=== PATIENT | female | born 2000 | race Caucasian/White ===

== ENCOUNTER → 2019-05-31 10:33 | Outpatient (BNVA) | payer OTHER, SELFPAY | PROVIDERS: Family Provider Nurse Practitioner Family; Visit Provider Family Medicine | DX: J02.9 Acute pharyngitis, unspecified (principal); J34.89 Other specified disorders of nose and nasal sinuses | CPT/HCPCS: 87081; 87880 ==

== ENCOUNTER → 2023-02-04 13:03 | Day surgery (SDC) | payer OTHER, BC, MEDICAID, SELFPAY ==
[2023-02-04 13:41] VITALS: BP 128/73; PULSE 84; RESP 18; TEMP 36.4; O2SAT 97
[2023-02-04 14:27] VITALS: BP 128/73; PULSE 84; RESP 18; TEMP 36.4; O2SAT 97
== END ==
PROVIDERS: PCP Family Medicine; Visit Provider Family Medicine
DX: O26.899 Other specified pregnancy related conditions, unspecified trimester (principal); Z67.91 Unspecified blood type, Rh negative; Z3A.00 Weeks of gestation of pregnancy not specified
CPT/HCPCS: 36415; 86850; 86900; 90384; 96372

== ENCOUNTER 2023-03-05 16:12 | Outpatient (CLI) | payer OTHER, BC, MEDICAID, SELFPAY ==
[2023-03-05 16:16] VITALS: BMI 50.3
[2023-03-05 16:20] VITALS: BP 130/74; PULSE 83
[2023-03-05 16:30] VITALS: RESP 17
[2023-03-05 16:36] VITALS: BP 127/78; PULSE 77
[2023-03-05 16:50] VITALS: BP 125/76; PULSE 85
== END 2023-03-05 17:05 | disposition home or self-care (01) ==
LOC: OPOB 16:14 → OBGYN 16:15
PROVIDERS: PCP Family Medicine; Visit Provider Family Medicine
DX: O36.8190 Decreased fetal movements, unspecified trimester, not applicable or unspecified (principal); Z3A.00 Weeks of gestation of pregnancy not specified
CPT/HCPCS: 59025; 99211

== ENCOUNTER → 2023-04-02 08:51 | Day surgery (SDC) | payer OTHER, BC, MEDICAID, SELFPAY ==
--- NOTE | 2023-04-02 09:19 | ANES.PREANE2 ---
Pre-Anesthetic Assessment Height/Weight: Height 1.59 m epidural Familial anesthetic complications: none Social No alcohol and No tobacco Exam alert, oriented x 3, clear to auscultation bilaterally and regular rate & rhythm Airway Mallampati: Class II Dentition: full Anesthetic Plan ASA status: 2 Anesthesia: Regional (specify below) Risk of > 500 ml blood loss (7ml/kg in children): Yes, adequate IV access and fluids planned Medications/Allergies Home Medications Medication Instructions Recorded Confirmed Last Taken Type fluoxetine 20 mg capsule (Prozac) 10 mg PO DAILY 02/04/23 02/04/23 02/04/23 History Allergies Allergy/AdvReac Type Severity Reaction Status Date / Time No Known Allergies Allergy Verified 03/05/23 19:50 [facility] Anesthesia Social History (Updated 05/31/19 @ 10:20 by Melida Chung LPN) Smoking and tobacco/nicotine status: never used tobacco/nicotine Alcohol intake: current Alcohol intake frequency: holidays/special occasions only Substance/Drug Use: never Current gender identity: Female Data Anesthesia Cardiac Studies: No Data to Display
== END ==
LOC: OR 08:55
PROVIDERS: PCP Family Medicine; Visit Provider Family Medicine
DX: Z01.818 Encounter for other preprocedural examination (principal)

== ENCOUNTER 2023-04-17 00:06 | Inpatient (IN) | payer OTHER, BC, MEDICAID, SELFPAY ==
[2023-04-16 22:53] VITALS: TEMP 36.1
[2023-04-16 22:54] VITALS: BP 124/87; PULSE 123
[2023-04-16 22:58] VITALS: RESP 15
[2023-04-16 23:04] VITALS: BMI 34.2
[2023-04-16 23:09] VITALS: BP 128/74; PULSE 141
[2023-04-17] VITALS (115 sets, daily range): BP systolic 78–154; BP diastolic 45–113; PULSE 63–117; RESP 15–17; TEMP 36–37.7; O2SAT 98–100
[2023-04-17 00:02] LABS: Basophils % 0.3 %; Eosinophils # 0.1 10^3/uL (0.0-0.8); Eosinophils % 0.4 %; Hematocrit 35.7 % (36-47); Lymphocytes # 2.2 10^3/uL (0.8-4.8); Lymphocytes % 17.8 %; Mean Corpuscular HGB Conc 35.6 g/dL (30-55); Mean Corpuscular Hemoglobin 30.8 pg (27-33); Mean Corpuscular Volume 86.4 fl (85-98); Monocytes % 8.5 %; Neutrophils % 72.5 %; Nucleated Red Blood Cells % 0 %; Platelet Count 166 10^3/cmm (157-399); Red Blood Count 4.13 10^6/uL (3.85-5.65); Red Cell Distribution Width 13.2 % (12.1-15.1); White Blood Count 12.28 10^3/uL (3.29-11.43)
[2023-04-17 00:09] LABS: Nitrazine Paper, PH Positive
[2023-04-17] MEDS: miSOPROStol 100 mcg tablet 25 MCG SUBLINGUAL ×2 (00:32→05:37)
[2023-04-17 00:57] LABS: Amphetamines Screen Urine Negative (Negative); Barbiturates Screen Urine Negative (Negative); Benzodiazepines Screen Urine Negative (Negative); Cocaine Screen Urine Negative (Negative); Opiate Screen Urine Negative (Negative); PCP Screen Urine Negative (Negative); THC Screen Urine Negative (Negative)
[2023-04-17] MEDS: fentaNYL 50 mcg/mL INJ 2mL IVP (02:42)
[2023-04-17] MEDS: lactated ringers 1,000 ML 999 ML IV ×3 (02:45→15:03)
--- NOTE | 2023-04-17 03:47 | ANES.PAUD2 ---
Pre-Anesthetic Update Pre-Anesthetic Assessment: Date of Surgery/Procedure: 04/17/23 Proposed Procedure: epidural Changes from Pre-Anesthetic Assessment: none Labs Last 48hrs: Short CBC 04/16/23 Range/Units 23:45 WBC 12.28 H (3.29-11.43) 10^ 3/uL Hgb 12.70 (11.27-16.99) g/ dL Hct 35.7 L (36-47) % MCV 86.4 (85-98) fl Plt Count 166 (157-399) 10^3/c mm Neut % (Auto) 72.5 % Neut # (Auto) 8.90 H (1.8-7.7) 10^3/u L Vitals: Temperature 97.0 F L 04/17/23 02:19 Pulse Rate 78 04/17/23 02:20 Respiratory Rate 17 04/17/23 02:42 Respiratory Effort Spontaneous, Non- Labored 04/17/23 02:42 Respiratory Depth Normal 04/17/23 02:42 Respiratory Patter n Normal 04/16/23 23:04 Blood Pressure 105/57 04/17/23 02:20 Oxygen Delivery Me thod Room Air 04/16/23 23:04 Cardiac Studies: No Data to Display
[2023-04-17] MEDS: ROPivacaine syringe 100 MG/50 ML SYRINGE 13 MG EPIDURAL ×7 (04:11→23:16)
--- NOTE | 2023-04-17 04:11 | ANES.PROC ---
Anesthesia Procedures Procedure/Date: 04/17/23 epidural Procedure Narrative: epidural complete, bolus given, epidural pump initiated with RETAIL LOAN ORIGINATOR ASSISTANT education given, vitals taken during procedure and satisfactory throughout, patient admits to decrease pain, report of procedure to OB RN Epidural: Time Out Performed: Yes Consents Signed: Procedure Consent Consent: requested by attending/covering physician, from patient, risks and benefits reviewed and patient agrees to proceed Lumbar Level: L3-L4 Epidural position: sitting Epidural procedure: sterile prep of area, 1% lidocaine to numb the area (3 mL), 18 g needle, negative for paresthesia passed, neg for paresthesia, test dose given, 1.5% xylocaine 1:200k epi (5 mL), 0.2% Ropivacaine bolus ml (5 mL), placed PCEA, no systemic response, sterile dressing applied, L.U.D. no apparent complications and 0.2% Ropiavacaine @ mls/hr (13 mL/hr)
[2023-04-17] MEDS: ondansetron 2 mg/ML SDV 2 mL 4 MG IVP (05:26)
--- NOTE | 2023-04-17 07:51 | PM.OPHPUD ---
Labor & Delivery H&P Update Date of Procedure: April 17, 2023 Date H&P Performed: 04/14/23 Changes to previous documentation: Spontaneous rupture of membranes Admission Diagnosis: 23-year-old 1 at 40 weeks estimated gestational age presenting with spontaneous rupture of membranes Other information: The patient is a 23-year-old 1 at 40 weeks estimated gestational age. She arrived to the hospital last night complaining of spontaneous rupture membranes. She was noted to be grossly ruptured. She is nitrazine positive. Her has been otherwise relatively unremarkable. Her blood type is B-. Her antibody screen was negative. She was THC positive. Her glucose screen was negative. She is rubella nonimmune. She was GBS negative. The remainder of her infectious disease protocol was within normal limits. Related Problem List Diagnoses (1) 40 weeks gestation of : (2) Spontaneous rupture of membranes: A&P Assessment and plan (1) 40 weeks gestation of : I anticipate spontaneous vaginal delivery. Status: Acute (2) Spontaneous rupture of membranes: Status: Acute
[2023-04-17] MEDS: dextrose 5%-lactated ringers 1,000 ML 125 ML IV ×2 (08:33→17:54)
[2023-04-17] MEDS: oxytocin 30 UNIT/500 ML BAG IV (09:44)
[2023-04-18] VITALS (14 sets, daily range): BP systolic 110–133; BP diastolic 53–80; PULSE 69–108; RESP 15–19; TEMP 36.6
--- NOTE | 2023-04-18 00:11 | P.PCNOB_ITS ---
Delivery Note: Date of delivery: April 18, 2023 Pre-delivery diagnoses: 23-year-old 1 at 40 weeks estima emelia gestational age who presented to the hospital with spontaneous rupture membranes Post-delivery diagnoses: Status post vacuum-assisted vaginal delivery Procedure: Vacuum-assisted vaginal delivery Delivering Physician: Keith Burciaga Estimated blood loss (mL): 250 Pre-Delivery Course: The patient presented to the hospital with spontaneous rupture membranes. Cytotec 25 mcg x 2 was used to augment her labor. Pitocin was later used augmented as well. An epidural was placed. She progressed to complete. The patient had ruptured membranes for about 27 hours. She did not show any signs of infection, or vital sign instability. There was some tachycardia. Delivery: DELIVERY: The patient progressed to complete without difficulty. When the baby was , the baby's heart tones dropped into the 50s and 60s. They were n ot coming up as typical, and I made the decision to apply vacuum. The vacuum was applied for about 10 seconds. The baby's head was then easily delivered. She delivered a female with a weight of 7 pounds 8 ounces with Apgars of 8, 9. The baby was delivered from the BRETT position and placed on the mother's abdomen. The cord was then clamped and cut. There was a nuchal cord x1. Terminal meconium was noted.. The placenta and 3 vessel cord were delivered intact shortly thereafter. The perineum and vaginal vault were carefully examined. A superficial right vaginal wall laceration was noted that did not require repair. Both the mother and the baby were in stable condition. Post-Delivery Status: Code A&P Assessment and plan (1) Vacuum-assisted vaginal delivery: Patient appears to be doing well. I anticipate routine care. (2) 40 weeks gestation of : Coding Level of Care Code Acute Code for Chg Fwd Diagnoses Vacuum-assisted vaginal delivery Z37.9 40 weeks gestation of Z3A.40
[2023-04-18] MEDS: HYDROcodone-acetaminophen 5-325 mg Tablet PO ×3 (01:11→17:20)
[2023-04-18] MEDS: fentaNYL 50 mcg/mL INJ 2mL IVP (01:36)
--- NOTE | 2023-04-18 03:31 | PC.NURSE ---
Patient feeling pressure
[2023-04-18] MEDS: lanolin oint 7 gm 1 APPLIC TOPICAL (07:26)
--- NOTE | 2023-04-18 07:29 | PC.NURSE ---
Educated patient on positioning in cross cradle and football holds, nipple to nose and tummy to tummy, hand position to support breast, waiting for wide gape and bringing in quickly. Discussed frequency and duration of feedings. Educated on nipple soreness and care of damaged nipples
[2023-04-18] MEDS: ibuprofen 800 mg tablet PO ×3 (10:08→21:40)
[2023-04-18] MEDS: prenatal vitamin Capsule 1 CAP PO (10:08)
[2023-04-18] MEDS: docusate sodium 100 mg Capsule PO ×2 (10:08→17:20)
--- NOTE | 2023-04-18 10:21 | PC.NURSE ---
Minimal assist offered for latching, educated on pumping, pumping schedules and storage of breastmilk
[2023-04-18 12:20] LABS: Hematocrit 28.9 % (36-47); Mean Corpuscular HGB Conc 35.3 g/dL (30-55); Mean Corpuscular Hemoglobin 31.2 pg (27-33); Mean Corpuscular Volume 88.4 fl (85-98); Mean Platelet Volume 12.4 fL (7.4-10.4); Platelet Count 138 10^3/cmm (157-399); Red Blood Count 3.27 10^6/uL (3.85-5.65); Red Cell Distribution Width 13.3 % (12.1-15.1); White Blood Count 21.18 10^3/uL (3.29-11.43)
--- NOTE | 2023-04-18 13:45 | PC.NURSE ---
lead atg developer in room, pt wants to wait on vital signs at this time.
[2023-04-19 04:00] VITALS: BP 118/75; PULSE 76; RESP 18; TEMP 36.7
--- NOTE | 2023-04-19 08:07 | ANE.PACU2 ---
Inpatient post-anesthesia follow up: Airway intact: Yes Vital signs: Temperature 98.4 F Pulse Rate 86 Respiratory Rate 16 Blood Pressure 131/83 Pulse Oximetry 97 Oxygen Delivery Me thod Room Air Oxygen Flow Rate Fraction of Inspir ed Oxygen Hydration adequate: Yes Nausea and vomiting: No Pain level: 1 Mental status: Baseline
--- NOTE | 2023-04-19 08:57 | PM.OBGYDC ---
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 Cytotec 25 mcg x 2 was placed. Labor was augmented by Pitocin. An epidural was placed. She progressed to complete and had a vacuum-assisted vaginal delivery due to bradycardia. Her course was otherwise unremarkable. She breast-fed well. Her bleeding was within normal limits. Her pain was well controlled. Information Peripartum Data: Delivery Method: Vaginal Physical Exam Narrative: The patient is alert. She appears comfortable. Her heart has a regular rate and rhythm with no murmurs appreciated. Lungs are clear to auscultation bilaterally. Her fundus is firm and below the umbilicus. Urinary Catheter Management: Cherry Latex: Cath Placed During This Visit: yes Reason for Continuing Indwelling Catheter: Acute Urinary Retention or Obstruction Urinary Catheter Date of Insertion: 04/17/23 Urinary Catheter Time of Insertion: 05:02 Discharge Data Studies Completed and Pending Laboratory Results WBC 21.18 10^3/uL (3.29-11.43) H 04/18/23 12:05 RBC 3.27 10^6/uL (3.85-5.65) L 04/18/23 12:05 Hgb 10.20 g/dL (11.27-16.99) L 04/18/23 12:05 Hct 28.9 % (36-47) L 04/18/23 12:05 MCV 88.4 fl (85-98) 04/18/23 12:05 MCH 31.2 pg (27-33) 04/18/23 12:05 MCHC 35.3 g/dL (30-55) 04/18/23 12:05 RDW 13.3 % (12.1-15.1) 04/18/23 12:05 Plt Count 138 10^3/cmm (157-399) L 04/18/23 12:05 MPV 12.4 fL (7.4-10.4) H 04/18/23 12:05 Neut % (Auto) 72.5 % 04/16/23 23:45 Lymph % (Auto) 17.8 % 04/16/23 23:45 [place] % (Auto) 8.5 % 04/16/23 23:45 Eos % (Auto) 0.4 % 04/16/23 23:45 Baso % (Auto) 0.3 % 04/16/23 23:45 Neut # (Auto) 8.90 10^3/uL (1.8-7.7) H 04/16/23 23:45 Lymph # (Auto) 2.2 10^3/uL (0.8-4.8) 04/16/23 23:45 [place] # (Auto) 1.0 10^3/uL (0.2-0.9) H 04/16/23 23:45 Eos # (Auto) 0.1 10^3/uL (0.0-0.8) 04/16/23 23:45 Baso # (Auto) 0.0 10^3/uL (0.0-0.1) 04/16/23 23:45 Nucleated RBC % (auto) 0 % 04/16/23 23:45 Nucleated RBCs # 0.0 /100WBC 04/16/23 23:45 Fluid pH (paper) Positive H 04/16/23 22:58 Urine Opiates Screen Negative ng/mL (Negative) 04/17/23 00:00 Ur Barbiturates Screen Negative ng/mL (Negative) 04/17/23 00:00 Ur Phencyclidine Scrn Negative ng/mL (Negative) 04/17/23 00:00 Ur Amphetamines Screen Negative ng/mL (Negative) 04/17/23 00:00 U Benzodiazepines Scrn Negative ng/mL (Negative) 04/17/23 00:00 Urine Cocaine Screen Negative ng/mL (Negative) 04/17/23 00:00 U Marijuana (THC) Screen Negative ng/mL (Negative) 04/17/23 00:00 Vitals Last Vital Signs Temp 98.0 F 04/19/23 04:00 Pulse 76 04/19/23 04:00 Resp 18 04/19/23 04:00 BP 118/75 04/19/23 04:00 Pulse Ox 98 11/30/23 04:02 O2 Del Method Room Air 04/16/23 23:04 Results Labs OB ([facility]): Blood Type B Negative 02/04/23 Antibody Screen Negative 02/04/23 Hct 28.9 % (36-47) L 04/18/23 Hgb 10.20 g/dL (11.27-16.99) L 04/18/23 Rho(D) Type Negative 02/04/23 Plt Count 138 10^3/cmm (157-399) L 04/18/23 Urine Opiates Screen Negative ng/mL (Negative) 04/17/23 Ur Barbiturates Screen Negative ng/mL (Negative) 04/17/23 Ur Phencyclidine Scrn Negative ng/mL (Negative) 04/17/23 Ur Amphetamines Screen Negative ng/mL (Negative) 04/17/23 U Benzodiazepines Scrn Negative ng/mL (Negative) 04/17/23 Urine Cocaine Screen Negative ng/mL (Negative) 04/17/23 U Marijuana (THC) Screen Negative ng/mL (Negative) 04/17/23 Discharge Plan Discharge Patient Disposition: Home Condition: Stable Prescriptions: New ibuprofen 800 mg Tablet 800 mg PO TID Qty: 45 0RF Continued [id number] fum-folic ac-om3 1 tab PO DAILY Discharge Orders: Discharge Order (Routine); Ordered 04/19/23 Ordered By: Keith Burciaga Referrals: Keith Burciaga MD [Primary Care Provider] - 05/30/23 12:00 pm Discharge Diet: Usual diet Discharge Activity: Limit activity as instructed Patient Instructions: Depression (DC), and Nipple Soreness (ED), How to Tell if Your Baby is Getting Enough Breast Milk (DC), Bleeding (DC), Preeclampsia and Eclampsia After Delivery (GEN), Breast Care for the Mother (DC), Hemorrhage (DC), OB Discharge Report, OB Food/Drug Interaction Guide, OB Care at Home, Opioid Safety, OB Home Care, Abnormal Bleeding Discharge Attestations 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
--- NOTE | 2023-04-19 09:01 | P.PN_ITS ---
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 The patient is doing well. She is breast-feeding well. Her pain is well controlled. There are no concerns. Labor: Station: 0 Amniotic Membrane Status: Ruptured Monitor Mode: External Contraction Pattern: Regular Status: Category I Vitals/I&O/Wt Last Vital Signs Temp 98.0 F 04/19/23 04:00 Pulse 76 04/19/23 04:00 Resp 18 04/19/23 04:00 BP 118/75 04/19/23 04:00 Pulse Ox 98 04/17/23 04:02 O2 Del Method Room Air 04/16/23 23:04 04/18/23 04/19/23 04/19/23 22:59 06:59 14:59 Intake Total 800 / 800 Balance 800 / 800 Physical Exam 2 Narrative: The patient is alert. She appears comfortable. Her heart has a regular rate and rhythm with no murmurs appreciated. Lungs are clear to auscultation bilaterally. Her fundus is firm and below the umbilicus. Urinary Catheter Management: Cherry Latex: Cath Placed During This Visit: yes Reason for Continuing Indwelling Catheter: Acute Urinary Retention or Obstruction Urinary Catheter Date of Insertion: 04/17/23 Urinary Catheter Time of Insertion: 05:02 Data 04/18/23 12:05 A&P Assessment and plan (1) Vacuum-assisted vaginal delivery: (2) 40 weeks gestation of : I anticipate routine care. Attestations 2 Medical Necessity Statement*: Routine care Coding Level of Care Code Acute Code for Chg Fwd Diagnoses Vacuum-assisted vaginal delivery Z37.9 40 weeks gestation of Z3A.40
[2023-04-19 10:30] VITALS: BP 131/83; PULSE 86; RESP 16; TEMP 36.9; O2SAT 97
[2023-04-19] MEDS: docusate sodium 100 mg Capsule PO (10:38)
[2023-04-19] MEDS: ibuprofen 800 mg tablet PO (10:38)
[2023-04-19] MEDS: prenatal vitamin Capsule 1 CAP PO (10:39)
== END 2023-04-19 10:55 | disposition home or self-care (01) | DRG 806 ==
LOC: OPOB 00:06 → OBGYN 00:06
PROVIDERS: Admitting Provider Family Medicine; PCP Family Medicine; Visit Provider Family Medicine
DX: O48.0 Post-term pregnancy (principal); O71.4 Obstetric high vaginal laceration alone; Z37.0 Single live birth; Z3A.40 40 weeks gestation of pregnancy; O69.81X0 Labor and delivery complicated by cord around neck, without compression, not applicable or unspecified; O77.0 Labor and delivery complicated by meconium in amniotic fluid; O76 Abnormality in fetal heart rate and rhythm complicating labor and delivery
CPT/HCPCS: 36415; 51702; 59025; 59409; 80306; 83986; 85025; 85027; 96374; 96376; 98960; 99211; J2405; J2590; J2795; J3010; J7120; J7121

== ENCOUNTER 2024-12-17 19:02 | Outpatient (CLI) | payer OTHER, SELFPAY ==
[2024-12-17 19:15] VITALS: BP 131/79; PULSE 97
[2024-12-17 19:30] VITALS: BP 108/83; PULSE 91
[2024-12-17 19:45] VITALS: BP 128/79; PULSE 100
== END 2024-12-17 19:08 | disposition home or self-care (01) ==
LOC: OPOB 19:04
PROVIDERS: PCP Family Medicine; Visit Provider Family Medicine
DX: O26.899 Other specified pregnancy related conditions, unspecified trimester (principal); Z3A.00 Weeks of gestation of pregnancy not specified; R10.9 Unspecified abdominal pain; N89.8 Other specified noninflammatory disorders of vagina
CPT/HCPCS: 83986

== ENCOUNTER 2024-12-17 20:40 | Inpatient (IN) | payer OTHER, SELFPAY ==
[2024-12-17 22:21] LABS: Hematocrit 36.2 % (36-47); Hemoglobin 12.30 g/dL (11.27-16.99); Mean Corpuscular HGB Conc 34.0 g/dL (30-55); Mean Corpuscular Hemoglobin 29.1 pg (27-33); Mean Corpuscular Volume 85.8 fl (85-98); Nucleated Red Blood Cells % 0 %; Platelet Count 167 10^3/cmm (157-399); Red Blood Count 4.22 10^6/uL (3.85-5.65); White Blood Count 13.26 10^3/uL (3.29-11.43)
[2024-12-17 22:49] VITALS: RESP 18; O2SAT 98
[2024-12-17] MEDS: fentaNYL 50 mcg/mL INJ 2mL IVP (22:49)
[2024-12-17 23:04] VITALS: BP 121/65; PULSE 77; TEMP 36.1
[2024-12-17 23:12] VITALS: BMI 32.1
[2024-12-18] VITALS (91 sets, daily range): BP systolic 92–142; BP diastolic 51–85; PULSE 47–148; RESP 16–18; TEMP 36.2–36.7; O2SAT 94–100; BMI 32.1
--- NOTE | 2024-12-18 | ANES.PREANE2 ---
Pre-Anesthetic Assessment Height/Weight: Height 1.6 m Temp Pulse Resp BP Pulse Ox O2 Del Method 97.0 F L 79 18 123/71 100 Room Air 12/17/24 23:04 12/18/24 00:20 12/17/24 22:49 12/18/24 00:20 12/18/24 00:19 12/17/24 21:04 Preop Diagnosis: IUP epidural Familial anesthetic complications: none Was Beta Rose Marie taken within 24 hours: N/A Was Clonidine taken within 24 hours: N/A Social No alcohol and No tobacco Exam alert and oriented x 3 Airway Submandibular: within normal limits Cervical ROM: within normal limits Mallampati: Class II Dentition: full History/ROS No significant complaints Anesthetic Plan ASA status: 2 Anesthesia: Anesthesia Evaluation and Regional (specify below) Risk of > 500 ml blood loss (7ml/kg in children): Yes, adequate IV access and fluids planned Medications/Allergies Home Medications ?Medication ?Instructions ?Recorded ?Confirmed ?Last Taken ?Type -nvec fum-folic ac-om3 1 tab PO DAILY 04/17/23 04/17/23 04/15/23 19:00 History ibuprofen 800 mg tablet 800 mg PO TID #45 tabs 04/19/23 Unknown Rx Allergies Allergy/AdvReac Type Severity Reaction Status Date / Time No Known Allergies Allergy Verified 03/05/23 19:50 Current Medications Generic Name Dose Route Start Last Admin Trade Name Freq PRN Reason Stop Dose Admin Fentanyl 25 - 100 mcg 12/17/24 22:25 12/17/24 22:49 Fentanyl 50 Mcg/Ml Inj 2ml IVP 25 mcg Q1H PRN Administration SEVERE PAIN Sodium Chloride 1,000 mls @ 999 mls/hr 12/17/24 22:44 12/17/24 23:01 Sodium Chloride 0.9% IV 999 mls/hr .Q1H1M PRN Administration See label comments PFSH Anesthesia Social History (Updated 05/31/19 @ 10:20 by Melida Chung LPN) Smoking and tobacco/nicotine status: never used tobacco/nicotine Alcohol intake: current Alcohol intake frequency: holidays/special occasions only Substance/Drug Use: never Current gender identity: Female Data Anesthesia 12/17/24 20:29 Short CBC 12/17/24 Range/Units 20:29 WBC 13.26 H (3.29-11.43) 10^3/uL Hgb 12.30 (11.27-16.99) g/dL Hct 36.2 (36-47) % MCV 85.8 (85-98) fl Plt Count 167 (157-399) 10^3/cmm Neut % (Auto) 77.4 % Neut # (Auto) 10.28 H (1.8-7.7) 10^3/uL Blood Bank 12/17/24 20:29 Blood Type B Negative Rho(D) Type Rh negative
[2024-12-18] MEDS: ROPivacaine syringe 100 MG/50 ML SYRINGE 10 MG EPIDURAL ×2 (00:18→03:38)
--- NOTE | 2024-12-18 00:20 | ANES.PROC ---
Anesthesia Procedures Procedure/Date: 12/18/24 Epidural: Time Out Performed: Yes Consents Signed: Procedure Consent Consent: from patient, risks and benefits reviewed and patient agrees to proceed Lumbar Level: L3-L4 Epidural position: sitting Epidural procedure: sterile prep of area, 1% lidocaine to numb the area, 18 g needle, negative for paresthesia passed, test dose given, 1.5% xylocaine 1:200k epi, placed PCEA, no systemic response, sterile dressing applied, L.U.D. no apparent complications and 0.2% Ropiavacaine @ mls/hr (13) Additional Comments: DIANE at 6, taped at 12 at skin. negative heme/CSF with aspiration.
--- NOTE | 2024-12-18 02:16 | PM.OPHPUD ---
Labor & Delivery H&P Update Date of Procedure: December 18, 2024 Date H&P Performed: 01/13/25 Changes to previous documentation: Active labor with spontaneous rupture of membranes Admission Diagnosis: 24-year-old 2 para 1-0-0-1 at 40 weeks estimated gestational age Preop diagnosis: IUP Planned procedure: Vaginal delivery Other information: The patient is a healthy 40-week female woman who presented to the hospital with spontaneous rupture membranes and active labor. Her membranes ruptured just prior to arrival to the hospital. She began having some contractions shortly after rupture membranes. Her has been unremarkable.Her blood type is B+. Her antibody screen was negative. She passed her glucose screen. Her drug screen has been positive for marijuana. She passed her glucose screen. She is GBS negative. The remainder of her infectious disease profile was within normal limits. Related Problem List Diagnoses 1. 40 weeks gestation of : 2. Spontaneous rupture of membranes: A&P Assessment and plan 1. 40 weeks gestation of : I anticipate a vaginal delivery. Status: Acute 2. Spontaneous rupture of membranes: Status: Resolved PDMP PDMP Reviewed: Not Reviewed
[2024-12-18] MEDS: ondansetron 2 mg/ML SDV 2 mL 4 MG IVP (04:58)
--- NOTE | 2024-12-18 05:46 | PM.DELIVERY ---
Delivery Note: Date of delivery: December 18, 2024 Pre-delivery diagnoses: 24-year-old 2 para 1-0-0-1 at 40 weeks estimated gestational age Post-delivery diagnoses: Status post spontaneous vaginal delivery Procedure: Spontaneous vaginal delivery Delivering Physician: Keith Burciaga Estimated blood loss (mL): 100 Pre-Delivery Course: The patient presented to the hospital with spontaneous rupture of membranes. She was already having contractions. Her contractions gradually increased in intensity. An epidural was placed. She progressed to an anterior lip where she was allowed to labor down for couple of hours. She then progressed to complete Delivery: DELIVERY: The patient progressed to complete without difficulty. She delivered a male with a weight of 7 pounds 2 ounces with Apgars of 8, 9. The baby was delivered from the BRETT position and placed on the mother's abdomen. The cord was then clamped and cut. There was no nuchal cord. There was no meconium. The placenta and 3 vessel cord were delivered intact shortly thereafter. The perineum and vaginal vault were carefully examined. No lacerations were noted. Both the mother and the baby were in stable condition. Post-Delivery Status: Good History History History 2 Term 2 Miscarriages/Ectopic Living Children 2 A&P Assessment and plan 1. Spontaneous vaginal delivery: I anticipate routine post care. PDMP PDMP Reviewed: Not Reviewed Coding Level of Care Code Acute Code for Chg Fwd Diagnoses Spontaneous vaginal delivery O80
[2024-12-18 06:55] LABS: PCP Screen Urine Negative (Negative)
[2024-12-18] MEDS: PRENATAL VIT NO.130/IRON/FOLIC 1 EACH TABLET PO (10:25)
[2024-12-18] MEDS: benzocaine-menthol 78 gm Canister 1 SPRAY TOPICAL (10:26)
[2024-12-18] MEDS: HYDROcodone-acetaminophen 5-325 mg Tablet PO (16:42)
[2024-12-18 17:48] LABS: Hematocrit 30.2 % (36-47); Hemoglobin 10.40 g/dL (11.27-16.99); Mean Corpuscular HGB Conc 34.4 g/dL (30-55); Mean Corpuscular Hemoglobin 29.4 pg (27-33); Mean Corpuscular Volume 85.3 fl (85-98); Platelet Count 174 10^3/cmm (157-399); Red Blood Count 3.54 10^6/uL (3.85-5.65); White Blood Count 17.54 10^3/uL (3.29-11.43)
[2024-12-19 06:00] VITALS: BP 95/52; PULSE 59; RESP 16; TEMP 36.5; O2SAT 98
[2024-12-19 06:07] VITALS: BP 95/52; PULSE 59; RESP 16; TEMP 36.5
--- NOTE | 2024-12-19 08:00 | ANE.PACU2 ---
Inpatient post-anesthesia follow up: Airway intact: Yes Vital signs: Temperature 97.7 F Pulse Rate 62 Respiratory Rate 17 Blood Pressure 124/78 Pulse Oximetry 97 Oxygen Delivery Me thod Room Air Oxygen Flow Rate Fraction of Inspir ed Oxygen Hydration adequate: Yes Nausea and vomiting: No Pain level: 1 Mental status: Baseline Epidural Start/End: Epidural Start Date: 12/18/24 Epidural Start Time: 00:00 Epidural End Date: 12/18/24 Epidural End Time: 06:28
--- NOTE | 2024-12-19 09:12 | PM.OBGYDC ---
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 Spontaneous vaginal delivery: Reason for Visit Reason for Visit: Ctx, LOF Hospital Course Hospital Course The patient presented to the hospital with spontaneous rupture membranes. She is in active labor. She received an epidural. She progressed to complete without difficulty. She had an unremarkable vaginal delivery of a healthy male infant. Her course was unremarkable. She had some difficulty with pain on the day of delivery. On the day of discharge, she was having minimal pain and doing very well. Her bleeding was within normal limits. There were no concerns. Information Peripartum Data: Infant Delivery Method: Vaginal Physical Exam Narrative: The patient is alert. She appears comfortable. Her heart has a regular rate and rhythm with no murmurs appreciated. Lungs are clear to auscultation bilaterally. Her fundus is firm and below the umbilicus. Urinary Catheter Management: Cherry: Cath Placed During This Visit: yes Urinary Catheter Date of Insertion: 12/18/24 Urinary Catheter Time of Insertion: 13:20 History History History 2 Term 2 Miscarriages/Ectopic Living Children 2 Discharge Data Studies Completed and Pending Laboratory Results WBC 17.54 10^3/uL (3.29-11.43) H 12/18/24 17:39 RBC 3.54 10^6/uL (3.85-5.65) L 12/18/24 17:39 Hgb 10.40 g/dL (11.27-16.99) L 12/18/24 17:39 Hct 30.2 % (36-47) L 12/18/24 17:39 MCV 85.3 fl (85-98) 12/18/24 17:39 MCH 29.4 pg (27-33) 12/18/24 17:39 MCHC 34.4 g/dL (30-55) 12/18/24 17:39 RDW 13.7 % (12.1-15.1) 12/18/24 17:39 Plt Count 174 10^3/cmm (157-399) 12/18/24 17:39 MPV 12.0 fL (7.4-10.4) H 12/18/24 17:39 Neut % (Auto) 77.4 % 12/17/24 20: Lymph % (Auto) 13.9 % 12/17/24 20: [place] % (Auto) 7.8 % 12/17/24 20: Eos % (Auto) 0.2 % 12/17/24 20: Baso % (Auto) 0.3 % 12/17/24 20: Neut # (Auto) 10.28 10^3/uL (1.8-7.7) H 12/17/24 20: Lymph # (Auto) 1.8 10^3/uL (0.8-4.8) 12/17/24 20: [place] # (Auto) 1.0 10^3/uL (0.2-0.9) H 12/17/24 20:29 Eos # (Auto) 0.0 10^3/uL (0.0-0.8) 12/17/24 20: Baso # (Auto) 0.0 10^3/uL (0.0-0.1) 12/17/24 20: Nucleated RBC % (auto) 0 % 12/17/24 20: Nucleated RBCs # 0.0 /100WBC 12/17/24 20: Urine Opiates Screen Negative ng/mL (Negative) 12/18/24 06:00 Ur Barbiturates Screen Negative ng/mL (Negative) 12/18/24 06:00 Ur Phencyclidine Scrn Negative ng/mL (Negative) 12/18/24 06:00 Ur Amphetamines Screen Negative ng/mL (Negative) 12/18/24 06:00 U Benzodiazepines Scrn Negative ng/mL (Negative) 12/18/24 06:00 Urine Cocaine Screen Negative ng/mL (Negative) 12/18/24 06:00 U Marijuana (THC) Screen Negative ng/mL (Negative) 12/18/24 06:00 Blood Type B Negative 12/17/24 20:29 Rho(D) Type Rh negative 12/17/24 20:29 Antibody Screen Positive 12/17/24 20: Antibody Identification Non-Specific Antibody Reation 12/17/24 20:29 Screen Negative (Negative) 12/18/24 17:39 Vitals Last Vital Signs Temp 97.7 F 12/19/24 06:07 Pulse 59 L 12/19/24 06:07 Resp 16 12/19/24 06:07 BP 95/52 12/19/24 06:07 Pulse Ox 98 12/19/24 06:00 O2 Del Method Room Air 12/19/24 06:00 Results Labs OB ([facility]): Obstetrics US 09/27/24 Blood Type B Negative 12/17/24 Antibody Screen Positive 12/17/24 Hct, (36-47) 30.2 % L 12/18/24 Hgb, (11.27-16.99) 10.40 g/dL L 12/18/24 Rho(D) Type Rh negative 12/17/24 Plt Count, (157-399) 174 10^3/cmm 12/18/24 Urine Opiates Screen, (Negative) Negative ng/mL 12/18/24 Ur Barbiturates Screen, (Negative) Negative ng/mL 12/18/24 Ur Phencyclidine Scrn, (Negative) Negative ng/mL 12/18/24 Ur Amphetamines Screen, (Negative) Negative ng/mL 12/18/24 U Benzodiazepines Scrn, (Negative) Negative ng/mL 12/18/24 Urine Cocaine Screen, (Negative) Negative ng/mL 12/18/24 U Marijuana (THC) Screen, (Negative) Negative ng/mL 12/18/24 Discharge Plan Discharge Patient Disposition: Home Condition: Stable Prescriptions: New ibuprofen 800 mg Tablet 800 mg PO TID Qty: 45 0RF Continued [id number] fum-folic [id number] 1 tab PO DAILY Referrals: Keith Burciaga MD [Primary Care Provider, [facility]] - 6 Weeks Discharge Diet: Usual diet Discharge Activity: Limit activity as instructed Patient Instructions: Depression (DC), Bleeding (DC), Preeclampsia and Eclampsia After Delivery (GEN), Hemorrhage (DC), OB Discharge Report, OB Food/Drug Interaction Guide, Opioid Safety, OB Home Care, OB [facility] Parent Packet, OB Vaginal Deliveries, Patient Portal & [place] Instructions Discharge Attestations CONFECTIONERY MAKER Time Spent in Discharge Care*: less than 30 min Coding Level of Care Code Acute Code for Chg Fwd Diagnoses Spontaneous vaginal delivery O80
[2024-12-19] MEDS: PRENATAL VIT NO.130/IRON/FOLIC 1 EACH TABLET PO (09:23)
[2024-12-19 09:25] VITALS: BP 124/78; PULSE 62; RESP 17; TEMP 36.5; O2SAT 97
[2024-12-19 10:35] VITALS: BP 124/78; PULSE 62; RESP 17; TEMP 36.5; O2SAT 97
== END 2024-12-19 10:35 | disposition home or self-care (01) | DRG 807 ==
LOC: OPOB 20:40 → OBGYN 20:40
PROVIDERS: Admitting Provider Family Medicine; PCP Family Medicine; Visit Provider Family Medicine
DX: O48.0 Post-term pregnancy (principal); Z37.0 Single live birth; Z3A.40 40 weeks gestation of pregnancy
CPT/HCPCS: 36415; 51702; 59409; 80306; 80503; 83986; 85025; 85027; 85460; 86850; 86870; 86900; 90384; 96374; 99211; J2405; J2795; J3010; J7030; J9999